=== PATIENT | male | born 1965 | race African-American/Black ===

== ENCOUNTER 2016-06-14 14:44 | Emergency (ER) | payer MEDICAID ==
[2016-06-14 16:51] LABS: BASOPHILS 0.4 % (0.0-2.0); EOSINOPHILS 3.8 % (0-7); HEMATOCRIT 31.3 % (42.0-54.0); HEMOGLOBIN 9.8 g/dL (13.5-17.5); IMMATURE GRANULOCYTES 1.4 % (0-5); LYMPHOCYTES 32.8 % (15-50); MCH 25.1 pg (26.0-34.0); MCHC 31.3 g/dL (31.0-37.0); MCV 80.3 fL (80.0-100.0); MEAN PLATELET VOLUME 8.7 fL (7.4-10.4); MONOCYTES 12.6 % (2-11); PLATELET COUNT 332 10x3/uL (130-400); RDW 17.2 % (11.5-14.5); WBC 8.3 10x3/uL (4.8-10.8)
[2016-06-14 17:05] LABS: ALBUMIN 2.8 g/dL (3.4-5.0); ALKALINE PHOSPHATASE 195 U/L (46-116); ALT (SGPT) 87 U/L (10-68); BILIRUBIN - TOTAL 0.28 mg/dL (0.2-1.3); CALC OSMOLALITY 282 mosm/kg (275-300); CALCIUM 9.1 mg/dL (8.5-10.1); CARBON DIOXIDE 22.8 mmol/L (21.0-32.0); CHLORIDE - SERUM 112 mmol/L (98-107); GLUCOSE 102 mg/dL (74-106); POTASSIUM - SERUM 3.8 mmol/L (3.5-5.1); PROTEIN - SERUM 7.5 g/dL (6.4-8.2); SODIUM 143 mmol/L (136-145); UREA NITROGEN 7 mg/dL (7-18); eGFR NON AFRICAN AMERICAN 84 mL/min (90-120)
== END 2016-06-14 17:41 | disposition home or self-care (01) ==
LOC: D.ER 14:44
PROVIDERS: Physician Assistant Medical
DX: E11.9 Type 2 diabetes mellitus without complications (principal); Z79.4 Long term (current) use of insulin; I10 Essential (primary) hypertension